=== PATIENT | male | born 1995 | race Caucasian/White ===

== ENCOUNTER 2022-06-10 08:06 | Outpatient (CLI) | payer BC, SELFPAY ==
--- NOTE | 2022-06-10 08:15 | CRLHL7_ITS ---
For Patients: As a result of the Century Cures Act, medical imaging exams and procedure reports are released immediately into your electronic medical record. You may view this report before your referring provider. If you have questions, please contact your health care provider. Indication: LT SHOULDER PAIN AND INSTABILITY, RECURRENT DISLOCATION Procedure : Informed consent was obtained. The site was marked. Time-out was performed. The skin of the left shoulder was cleansed with ChloraPrep. A sterile drape was placed. 8 cc of 1 percent lidocaine was administered for superficial anesthesia. Subsequently a 22 gauge spinal needle was introduced into the left shoulder joint under intermittent fluoroscopic guidance. Injection of 2 cc nonionic Omnipaque 240 contrast confirmed intra-articular location. Subsequently 11 cc of dilute gadolinium were injected. The needle was removed and hemostasis achieved with direct pressure. A dressing was placed. The patient tolerated the procedure well without immediate complication and was immediately sent to MRI for imaging. Total fluoroscopy time 12 seconds. Impression: Successful fluoroscopically guided left shoulder arthrogram for MRI. Dictated by Da Zimmerman MD @ 06/10/2022 10:01:16 AM (Electronically Signed)
--- NOTE | 2022-06-10 09:15 | MR_ITS ---
[address] [address] Phone:?[phone] Fax:?[phone] Referring Physician Information: Yasmine Wilcox [address] [facility] [address] Phone:?[phone] Fax:?[phone] Patient:?Mason Paez D.O.B:?1995 Sex:?Male Phone:?[phone] [facility] MRN:?[id number] Exam Date:?06/10/2022 ? EXAM: MR ARTHROGRAM of the LEFT SHOULDER CLINICAL: Male, 27 years old, with left shoulder pain and instability. History of multiple dislocation injuries, the original injury when weightlifting and the most recent injury 6 days ago caused by swinging his left arm to point INDICATION: Evaluate for labral tear. PRIOR SURGERY: None reported. PLAIN FILMS: None available. COMPARISON: No prior MRIs available. TECHNICAL: This examination performed after gadolinium contrast arthrography, reported separately. Using a 1.5T MR scanner and a localizing shoulder surface coil: 3.0 mm?coronal obliques: PD, T2FS, T1FS 3.0 mm?sagittal obliques: T2, PDFS 3.0 mm?axials: PD, PDFS SEDATION: None. CONTRAST: No intravenous contrast. IMPRESSION: 1. Findings presumed to represent residua of anterior dislocation injury or injuries. 2. Relatively broad-based humeral Hill-Sachs lesion/impaction of the posterosuperior humeral head with mild to moderate subjacent marrow edema/contusion. No acute or convincing chronic reverse Hill-Sachs lesion. 3. Surprisingly minor-appearing deformity of the anterior labrum with some blunting and perhaps focal irregularity but without convincing more well-defined linear anterior labrum tear. 4. No anterior osseous Bankart lesion. 5. Expected relatively nondisplaced 1.5 cm linear tear of the base of the posterior labrum 6. Mild chronic deep surface attenuation of the supraspinatus and infraspinatus tendons without full-thickness tear or full-thickness tendinopathy. FINDINGS: Glenohumeral joint: Contrast/cyst: Contrast distends joint capsule. No paralabral ganglion cyst. Articular cartilage: Humeral head: No osteochondral abnormalities. Glenoid: No osteochondral abnormalities. Loose bodies: No demonstrable loose bodies. Capsule: No convincing adhesive capsulitis or capsular injury. Labrum: Linear signal alteration of the base of the mid posterior labrum in keeping with posterior labrum tear, relatively nondisplaced (axial images 14- 19). Also some linear signal alteration of the superior labrum posterior to the biceps anchor. Minor-appearing anterior labral deformity with some apical free edge blunting and perhaps minor irregularity, but without convincing more well-defined linear Bankart/Perthes tear morphology (axial images 15-20). Bones: Proximal humerus: Humeral Hill-Sachs lesion/impaction of the posterosuperior humeral head is accompanied by mild to moderate subjacent marrow edema. The proximal humerus is otherwise intact. No fracture or marrow edema/pathology. No humeral Hill-Sachs or reverse Hill-Sachs lesion/impaction or contusion. Glenoid: No fracture or marrow edema/pathology. No osseous Bankart lesion. Coracoacromial arch: Acromion morphology: Pronounced type II acromion without defined subacromial spur/enthesophyte. No mesoacromion or preacromion. Acromiohumeral space: Moderately narrowed narrowed at a minimum of 3 mm. Coracohumeral space: Within normal limits. Acromioclavicular joint: Joint: No acute injury, arthropathy, or inferior hypertrophy. Ligaments: Coracoclavicular ligaments are intact. Bursae: Subacromial-subdeltoid: No contrast in the subacromial space. Mild abnormal- appearing subacromial bursal edema/bursitis (coronal PDFS series 5, images 19-9; sagittal PDFS series 8, images 13-7). Subcoracoid: No convincing subcoracoid bursal thickening/bursitis. Rotator cuff and muscles/tendons: Supraspinatus: Chronic-appearing broad-based deep surface attenuation of the subjacent is not associated with full-thickness tear or full-thickness tendinopathy (coronal images 13-9; sagittal images 10-6). No tendon or myotendinous junction retraction. No muscle atrophy. Infraspinatus: Also some deep surface attenuation extends into the infraspinatus tendon also without full-thickness tear or full-thickness tendinopathy. No tendon or myotendinous junction retraction. No muscle atrophy. Teres minor: No tendinopathy, tear or atrophy. Subscapularis: No tendinopathy, tear or atrophy. Deltoid: No strain or atrophy. Biceps tendon, long head: Intraarticular and extraarticular segments are intact without rupture, tendinopathy or displacement. [facility] Electronically signed on 06/11/2022 5:24:00 PM by Reji Fatima M.D.
== END 2022-06-10 08:07 | disposition home or self-care (01) ==
PROVIDERS: Visit Provider Physician Assistant Surgical
DX: M25.512 Pain in left shoulder (principal); S43.492A Other sprain of left shoulder joint, initial encounter; M24.412 Recurrent dislocation, left shoulder; M75.102 Unspecified rotator cuff tear or rupture of left shoulder, not specified as traumatic
CPT/HCPCS: 23350; 73222; 77002; A9575; Q9966

== ENCOUNTER 2022-10-25 09:45 | Outpatient (RCR) | payer BC, SELFPAY | END 2022-11-02 10:33 | disposition home or self-care (01) | PROVIDERS: Visit Provider Orthopaedic Surgery Sports Medicine | DX: Z98.890 Other specified postprocedural states (principal); M62.81 Muscle weakness (generalized); Z51.89 Encounter for other specified aftercare | CPT/HCPCS: 97110; 97112; 97140; 97161 ==